=== PATIENT | female | born 1950 | race American Indian/Alaskan Native ===

== ENCOUNTER 2017-01-22 14:50 | Emergency (ER) | payer MEDICAID, OTHER ==
[2017-01-22 14:50] VITALS: BMI 25.2
[2017-01-22 15:00] VITALS: BP 146/81; PULSE 84; RESP 18; TEMP 98.5; O2SAT 98
--- NOTE | 2017-01-22 15:15 | ED PDOC ---
Arrival/HPI - General Chief Complaint: Upper Extremity Problem/Injury Time Seen by Provider: 01/22/17 15:11 Historian: Patient - History of Present Illness Narrative History of Present Illness (Text): 01/22/17 15:12 This 66 yo female presents to this ED c/oright shoulder pain x 1 day. Patient stated she tripped and fell down on the floor. She said she placed her hands down to break the fall. Denies head injury, loc, weakness, paresthesias, or abnormal gait. Time/Duration: Other (1 day) Context: Home Past Medical History - Provider Review Nursing Documentation Reviewed: Yes - Past History Past History: No Previous - Infectious Disease Hx of Infectious Diseases: None - Tetanus Immunization Tetanus Immunization: Unknown - Endocrine/Metabolic Hx Diabetes Mellitus Type 2: Yes Hx Hypothyroidism: Yes - Psychiatric Hx Depression: Yes Hx Emotional Abuse: No Hx Physical Abuse: No Hx Substance Use: No - Surgical History Hx Hysterectomy: Yes (partial) Other/Comment: Tumor removed from neck 2014 - Suicidal Assessment Feels Threatened In Home Enviroment: No Family/Social History - Physician Review Nursing Documentation Reviewed: Yes Family/Social History: Other (non-contributory) Smoking Status: Never Smoked Hx Alcohol Use: No Hx Substance Use: No Hx Substance Use Treatment: No Allergies/Home Meds Allergies/Adverse Reactions: Allergies sulfur [From Sulfur-8] Allergy (Verified 01/22/17 15:00) REDNESS Home Medications: Home Meds Medication Instructions Recorded Confirmed Levothyroxine [Synthroid] 50 mg PO DAILY 02/09/12 01/22/17 MetFORMIN [glucOPHAGE] 750 mg PO DAILY 01/22/17 01/22/17 Review of Systems - Review of Systems Constitutional: Normal. absent: Fatigue, Weight Change, Fevers Eyes: Normal ENT: Normal Respiratory: Normal. absent: SOB, Cough Cardiovascular: Normal. absent: Chest Pain, Palpitations Gastrointestinal: Normal. absent: Abdominal Pain, Nausea, Vomiting Genitourinary Female: Normal. absent: Dysuria, Frequency, Hematuria Musculoskeletal: Other ((+) right shoulder pain). absent: Back Pain, Neck Pain Skin: Normal Neurological: Normal Endocrine: Normal Hemo/Lymphatic: Normal Psychiatric: Normal Physical Exam Vital Signs Temp Pulse Resp BP Pulse Ox 01/22/17 14:55 98.5 F 84 18 146/81 98 Temperature: Afebrile Blood Pressure: Normal Pulse: Regular Respiratory Rate: Normal Appearance: Positive for: Well-Appearing, Non-Toxic, Comfortable Pain Distress: None Mental Status: Positive for: Alert and Oriented X 3 - Systems Exam Head: Present: Atraumatic, Normocephalic, Other (no raccoon sign. no gutierrez signs) Pupils: Present: PERRL, Other (no hyphema) Extroacular Muscles: Present: EOMI. No: Entrapment Conjunctiva: Present: Normal Ears: Present: Normal, NORMAL TM, Normal Canal, Other (no hemotympanum). No: Erythema, TM Bulging, Fluid Mouth: Present: Moist Mucous Membranes Neck: Present: Normal Range of Motion, Trachea Midline. No: Meningeal Signs, MIDLINE TENDERNESS, Paraspinal Tenderness Back: Present: Normal Inspection. No: CVA Tenderness, Midline Tenderness, Paraspinal Tenderness, Pain with Leg Raise Upper Extremity: Present: Normal Inspection, Normal ROM, NORMAL PULSES, Tenderness (Mild tenderness anterior righ shoulder), Neurovascularly Intact, Capillary Refill < 2s. No: Edema, Swelling, Erythema Lower Extremity: Present: Normal Inspection, Normal ROM. No: Edema Neurological: Present: GCS=15, CN II-XII Intact, Speech Normal, Motor Func Grossly Intact, Normal Sensory Function, Normal Cerebellar Funct, Gait Normal, Memory Normal Skin: Present: Warm, Dry, Normal Color. No: Rashes Psychiatric: Present: Alert, Oriented x 3, Normal Insight, Normal Concentration Medical Decision Making ED Course and Treatment: 01/22/17 15:50 Re-evaluation. Patient feels better. Discussed results and plan with patient who expresses understanding. All questions answered and there is agreement with the plan to discharge home with instructions. Patient stable for discharge. Return if symptoms persist or worsen. Shoulder x-rays: No Fx. or dislocation Patient was provided with arm sling as per her request. Patient was recommended to f/u pmd in 1-2 days. Re-evaluation Time: 15:50 Reassessment Condition: Re-examined, Improved - RAD Interpretation Radiology Orders: 01/22/17 15:16 SHOULDER RIGHT [RAD] Stat - Medication Orders Current Medication Orders: Discontinued Medications Ibuprofen (Motrin Tab) 400 mg PO STAT STA Stop: 01/22/17 15:17 Last Admin: 01/22/17 15:26 Dose: 400 mg Disposition/Present on Arrival - Present on Arrival Any Indicators Present on Arrival: No History of DVT/PE: No History of Uncontrolled Diabetes: No Urinary Catheter: No History of Decub. Ulcer: No History Surgical Site Infection Following: None - Disposition Have Diagnosis and Disposition been Completed?: Yes Diagnosis: Shoulder pain Disposition: HOME/ ROUTINE Disposition Time: 15:52 Patient Plan: Discharge Condition: GOOD Discharge Instructions (ExitCare): Shoulder Sprain (ED) Additional Instructions: Call private doctor for follow up visit in 1-2 days. Take medication as instructed with food. Return to emergency if pain worsen Prescriptions: Famotidine [Pepcid] 40 mg PO DAILY #10 tablet Ibuprofen [Motrin] 600 mg PO Q8 PRN #20 tab PRN Reason: Pain, Severe (8-10) Referrals: Amrita Francis MD [Primary Care Provider] - Follow up with primary Forms: [employer] (J[place]ican), WORK NOTE
--- NOTE | 2017-01-22 15:54 | RAD ---
PROCEDURE: Radiographs of the Right Shoulder HISTORY: pain COMPARISON: No prior. FINDINGS: BONES: No fracture. JOINTS: Glenohumeral and acromioclavicular joints moderate osteoarthritis. SOFT TISSUES: Normal. OTHER FINDINGS: None. IMPRESSION: Moderate osteoarthrosis. No fracture or lytic lesion
== END 2017-01-22 15:55 | disposition home or self-care (01) ==
LOC: ED 14:50
DX: M25.511 Pain in right shoulder (principal)

== ENCOUNTER 2018-02-02 12:17 | Emergency (ER) | payer MEDICARE, OTHER ==
[2018-02-02 12:17] VITALS: BMI 25.2
[2018-02-02 13:53] VITALS: RESP 18; TEMP 98.3; O2SAT 99
--- NOTE | 2018-02-02 14:22 | ED PDOC ---
Arrival/HPI - General Chief Complaint: Upper Extremity Problem/Injury Time Seen by Provider: 02/02/18 13:47 - History of Present Illness Narrative History of Present Illness (Text): 67 y/o F p/w R 3rd digit pain x 2 days. Patient states there is a wall in her home that is splintered and she accidentally touched the wall when picking something up and a splinter entered the distal pulp of her 3rd digit right under the nail. Denies fever, chills, erythema or discharge. 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 - Suicidal Assessment Feels Threatened In Home Enviroment: No Family/Social History Family/Social History: No Known Family HX Smoking Status: Never Smoked Hx Alcohol Use: No Hx Substance Use: No Hx Substance Use Treatment: No Allergies/Home Meds Allergies/Adverse Reactions: Allergies sulfur [From Sulfur-8] Allergy (Verified 01/22/17 15:00) REDNESS Home Medications: Home Meds Medication Instructions Recorded Confirmed Levothyroxine [Synthroid] 50 mg PO DAILY 02/09/12 01/22/17 MetFORMIN [glucOPHAGE] 750 mg PO DAILY 01/22/17 01/22/17 Review of Systems - Physician Review All systems were reviewed & negative as marked: Yes - Review of Systems Constitutional: absent: Fevers Respiratory: absent: SOB Physical Exam - Physical Exam Narrative Physical Exam (Text): Gen: NAD Head: NC/AT Eyes: PERRL ENT: MMM Neck: Supple Chest: No tenderness CV: Regular rate Lungs: CTA b/l Abd: Soft, NT Back: No CVA tenderness Extremities: FROM of 4 hand digits Skin: Visible splinter under nailbed Neuro: Alert, no focal deficit Vital Signs Temp Pulse Resp BP Pulse Ox 02/02/18 13:30 98.3 F 70 18 130/69 99 Medical Decision Making ED Course and Treatment: Lidocaine administered at distal pulp without epinephrine. Distal nail cut away to allow for insertion of forceps. Splinter removed. Disposition/Present on Arrival - Present on Arrival Any Indicators Present on Arrival: No History of DVT/PE: No History of Uncontrolled Diabetes: No Urinary Catheter: No History of Decub. Ulcer: No History Surgical Site Infection Following: None - Disposition Have Diagnosis and Disposition been Completed?: Yes Diagnosis: Foreign body of finger Disposition: HOME/ ROUTINE Disposition Time: 14:23 Patient Plan: Discharge Condition: STABLE Discharge Instructions (ExitCare): Foreign Body in Skin, Removal of Foreign Body in Skin Prescriptions: Amoxicillin/Clavulanate [Augmentin 875 MG-125 MG] 1 tab PO BID #14 tab Referrals: Amrita Francis MD [Primary Care Provider] - Follow up with primary
[2018-02-02 14:44] VITALS: BP 131/74; PULSE 74
== END 2018-02-02 14:47 | disposition home or self-care (01) ==
LOC: ED 12:17
DX: S60.452A Superficial foreign body of right middle finger, initial encounter (principal); W45.8XXA Other foreign body or object entering through skin, initial encounter; Y92.009 Unspecified place in unspecified non-institutional (private) residence as the place of occurrence of the external cause; E11.9 Type 2 diabetes mellitus without complications; E03.9 Hypothyroidism, unspecified